=== PATIENT | female | born 2000 | race African-American/Black ===

== ENCOUNTER 2024-04-09 10:01 | Emergency (ER) | payer OTHER ==
[~2024-04-09] VITALS: Ht 160 cm; Wt 74.7 kg
[2024-04-09] MEDS ORDERED: BENZ200C70 PO (12:33)
[2024-04-09 12:39] VITALS: BP 125/60; TEMP 97.5; O2SAT 99
== END 2024-04-09 12:45 | disposition home or self-care (01) ==
LOC: M ED 10:01
DX: R05.9 Cough, unspecified (principal); T48.3X5A Adverse effect of antitussives, initial encounter; Z79.899 Other long term (current) drug therapy

== ENCOUNTER 2025-05-13 07:57 | Emergency (ER) | payer OTHER ==
[~2025-05-13] VITALS: Ht 160 cm; Wt 74.8 kg
[~2025-05-13 07:57] MED LIST: BENZ200C70 PO
[2025-05-13] MEDS ORDERED: DOXY-440 PO (09:25)
[2025-05-13 09:31] VITALS: BP 127/81; TEMP 98.8; O2SAT 100
== END 2025-05-13 09:41 | disposition home or self-care (01) ==
LOC: M ED 07:57
DX: A84.9 Tick-borne viral encephalitis, unspecified (principal); S30.861A Insect bite (nonvenomous) of abdominal wall, initial encounter; Z79.2 Long term (current) use of antibiotics; Z79.899 Other long term (current) drug therapy; Y92.9 Unspecified place or not applicable; Y93.89 Activity, other specified; Y99.9 Unspecified external cause status